=== PATIENT | female | born 1950 | race Caucasian/White ===

== ENCOUNTER 2020-09-02 20:50 | Emergency (ER) | payer OTHER ==
[2020-09-02 21:02] VITALS: BMI 30.1
--- NOTE | 2020-09-02 21:46 | PDOC ---
History of Present Illness - General Chief Complaint: Pain Stated Complaint: ABDOMINAL PAIN/EDEMA Time Seen by Provider: 09/02/20 21:17 - History of Present Illness Initial Comments: 09/02/20 22:18 70 yo female with pmh hld, htn, gastritis, hernia sx, and hysterectomy presents to ED for lower abd pain worsening for the last 3-4 days. Pt is gabonese speaking so daughter interpreted for her. According to pt has been having on and off pain for the last two months where she has generalized abdominal pain mostly on her suprapubic area. She explain she went to [facility] about a month ago for similar pain where they did a CT scan of her abdomen and it did not show any acute findings. Pt currently explains in the last few days pain was getting worse. Pt went to her [facility] four days prior Dr. Brown who put her on ciprofloxacin and metronidazole for possible GI infection. This did not help the pt pain so she decided to come in. Pt currently describes pain as sharp pain worse with any type of sudden movements. Pt also explains she has some urinary frequency going on for the past month and this morning she had some dysuria. Pt currently also has associated nausea but denies any emesis. Pt also has associated lower ext edema and abdominal distention that has been going on and off for the past two months. Pt scheduled for endoscopy and colonoscopy in September. Pt denies diarrhea, constipation, bloody stools, black stools, fevers, chills, chest pain, or SOB. PMH: HLD< HTN, Gastroparesis, Vertigo PSH: hysterectomy, right sided hernia, varicose vein surgery [place]: codeine Social: denies smoking drugs and alcohol PCP: Dr. Pepe GI: Dr. Brown Past History - Medical History Allergies/Adverse Reactions: Allergies Allergy/AdvReac Type Severity Reaction Status Date / Time codeine Allergy Verified 09/02/20 23:27 gabapentin Allergy Verified 09/02/20 23:28 Asthma: Yes COPD: No GI Disorders: Yes HTN: Yes Hypercholesterolemia: Yes - Psycho-Social/Smoking History Smoking History: Never smoked - Substance Abuse Hx (Audit-C & DAST Scrn) How often the patient has a drink containing alcohol: Never Score: In Men: 4 or > Positive; In Women: 3 or > Positive: 0 Screen Result (Pos requires Nsg. Audit-10AR): Negative Review of Systems - Review of Systems Comments:: 09/02/20 22:30 GENERAL/CONSTITUTIONAL: No fever or chills. No weakness. HEAD, EYES, EARS, NOSE AND THROAT: No change in vision. No ear pain or discharge. No sore throat. CARDIOVASCULAR: No chest pain or shortness of breath RESPIRATORY: No cough, wheezing, or hemoptysis. GASTROINTESTINAL: Nausea. No vomiting, diarrhea or constipation GENITOURINARY: Dysuria and urinary frequency MUSCULOSKELETAL: lower ext swelling SKIN: No rash NEUROLOGIC: No headache, vertigo, loss of consciousness, or change in strength/sensation. ENDOCRINE: No increased thirst. No abnormal weight change HEMATOLOGIC/LYMPHATIC: No anemia, easy bleeding, or history of blood clots. ALLERGIC/IMMUNOLOGIC: No hives or skin allergy. *Physical Exam - Vital Signs Last Vital Signs Temp Pulse Resp BP Pulse Ox 97.8 F 73 20 141/84 99 09/02/20 20:53 09/02/20 20:53 09/02/20 20:53 09/02/20 20:53 09/02/20 20:53 - Physical Exam 09/03/20 05:46 GENERAL: Awake, alert, and fully oriented, in no acute distress HEAD: No signs of trauma, normocephalic, atraumatic EYES: EOMI, sclera anicteric, conjunctiva clear ENT: Auricles normal inspection, hearing grossly normal, nares patent, oropharynx clear without exudates. Moist mucosa NECK: Normal ROM, supple, no lymphadenopathy, JVD, or masses LUNGS: No distress, speaks full sentences, clear to auscultation bilaterally HEART: Regular rate and rhythm, normal S1 and S2, no murmurs, rubs or gallops, peripheral pulses normal and equal bilaterally. ABDOMEN: normal bowel sounds. Tender to palpation in LLQ and RLQ and suprapubic area. EXTREMITIES :mild nonpitting edema on bilateral lower edema. NEUROLOGICAL: Cranial nerves II through XII grossly intact. Normal speech, normal gait, no focal sensorimotor deficits SKIN: Warm, Dry, normal turgor, no rashes or lesions noted ED Treatment Course - LABORATORY CBC & Chemistry Diagram: 09/02/20 23:18 09/02/20 23:18 Medical Decision Making - Medical Decision Making 09/02/20 22:53 70 yo f coming in with lower abd pain. ddx: uti, diverticulosis, ovarian cancer, constipation, muscle strain, IBS plan: CBC, cmp, UA. Will give tylenol for pain, pelvic ultrasound Pt already on abx. Pt plan has resolved. Labs showed no acute pathology. Will dc home with GI follow up. Discharge - Discharge Information Problems reviewed: Yes Clinical Impression/Diagnosis: Gas pain, Constipation by delayed colonic transit Condition: Improved Disposition: HOME - Follow up/Referral Referrals: Alicia Pepe MD [Primary Care Provider] - - Patient Discharge Instructions Patient Printed Discharge Instructions: Eating a Diet Rich in Fruits and Vegetables, DI for Dyspepsia Additional Instructions: You came into the emergency department for abdominal pain. Labs and ultrasound imaging did not indicate acute pathology Follow-up with your GI or primary care provider to discuss this ED visit and to further evaluate your symptoms. Your workup is not complete until you do so. Immediate medical attention is required if you develop: worsening pain, high fevers, persistent nausea, vomiting, or any new or concerning symptoms. If you think you are having an emergency, call for emergency medical services or present to the emergency department right away. - Post Discharge Activity
--- NOTE | 2020-09-02 22:05 | PDOC ---
Attending Attestation - Resident Resident Name: Dipak Sy - ED Attending Attestation I have performed the following: I have examined & evaluated the patient, The case was reviewed & discussed with the resident, I agree w/resident's findings & plan - HPI HPI: 09/02/20 23:23 Pt is concerned because she has sharp pains in her lower abd. She is gaining weight and she has distended abd. Her soc started her on abx for colitis. Pt has no dysuria-- regardless, abx would rx a UTI Pt has no fever chils or weight loss but she does have weakness. - Physicial Exam PE: 09/02/20 23:24 Normal exam. Obese abd; thick later of fat around abd Very gassy bowel sounds. - Medical Decision Making 09/02/20 23:56 All labs are normal she will get a sono and go home. 09/03/20 00:04 Pt likely only has gas and constipation and gained weight 09/03/20 01:50 Pt has a normal looking sono of her pelvis 09/03/20 04:58 Patient Name: BRYAN MANLEY THIS IS A PRELIMINARY REPORT DATE OF SERVICE: 2020-09-02 23:54:39 IMAGES: 17 EXAM: TRANSVAGINAL ULTRASOUND US HISTORY: Rule out ovarian mass. COMPARISON: None. FINDINGS: Status post hysterectomy. No appreciable adnexal masses or fluid collections. Right ovary not seen due to bowel gas. Left ovary unremarkable in sonographic appearance with preserved color Doppler flow. IMPRESSION: Status post hysterectomy. Nonvisualization of right ovary with normal sonographic appearance of the left ovary Discharge - Discharge Information Problems reviewed: Yes Clinical Impression/Diagnosis: Gas pain, Constipation by delayed colonic transit Condition: Improved Disposition: HOME - Follow up/Referral Referrals: Alicia Pepe MD [Primary Care Provider] - - Patient Discharge Instructions Patient Printed Discharge Instructions: Eating a Diet Rich in Fruits and Vegetables, DI for Dyspepsia Additional Instructions: You came into the emergency department for abdominal pain. Labs and ultrasound imaging did not indicate acute pathology Follow-up with your GI or primary care provider to discuss this ED visit and to further evaluate your symptoms. Your workup is not complete until you do so. Immediate medical attention is required if you develop: worsening pain, high fevers, persistent nausea, vomiting, or any new or concerning symptoms. If you think you are having an emergency, call for emergency medical services or present to the emergency department right away. - Post Discharge Activity
[2020-09-02] MEDS ORDERED: ACETAMINOPHEN 1000 MG/100 ML VIAL (NON FORMULARY) IVPB ONE (22:17)
[2020-09-02 23:12] LABS: PH,URINE 7.5 (5.0-8.0); URINE APPEARANCE CLEAR; URINE BILIRUBIN NEGATIVE (NEGATIVE); URINE COLOR YELLOW; URINE GLUCOSE (UA) NEGATIVE (NEGATIVE); URINE KETONE NEGATIVE (NEGATIVE); URINE LEUK ESTERASE NEGATIVE (NEGATIVE); URINE NITRITE NEGATIVE (NEGATIVE); URINE PROTEIN NEGATIVE (NEGATIVE); URINE UROBILINOGEN 0.2 mg/dL (0.2-1.0)
[2020-09-02] MEDS ORDERED: POLYETHYLENE GLYCOL 3350 119 GM BTL PO ONE (23:14)
[2020-09-02] MEDS ORDERED: LACTULOSE 20 GM/30 ML UDC (FOR ORAL USE ONLY) PO ONE (23:14)
[2020-09-02 23:32] LABS: EOS % 4.3 % (0-4.5); HEMATOCRIT 39.2 % (32.4-45.2); HEMOGLOBIN 13.3 GM/dL (10.7-15.3); LYMPH % 33.8 % (8-40); MCH 30.4 pg (25.7-33.7); MEAN CELL VOLUME 89.6 fl (80-96); MEAN PLT VOLUME 8.2 fl (7.5-11.1); MONO % 10.2 % (3.8-10.2); NEUT % 50.7 % (42.8-82.8); PLATELET COUNT 261 K/MM3 (134-434); RBC 4.37 M/mm3 (3.60-5.2); RDW 13.2 % (11.6-15.6); WHITE BLOOD COUNT 6.1 K/mm3 (4.0-10.0)
[2020-09-02 23:41] LABS: CHLORIDE 107 mmol/L (98-107); POTASSIUM 3.6 mmol/L (3.5-5.1); SODIUM 142 mmol/L (136-145)
[2020-09-02 23:43] LABS: CALCIUM 8.9 mg/dL (8.5-10.1)
[2020-09-02 23:44] VITALS: PULSE 69
[2020-09-02 23:44] LABS: ALBUMIN 3.5 g/dl (3.4-5.0); ANION GAP 5 MMOL/L (8-16); BLOOD UREA NITROGEN 10.6 mg/dL (7-18); CO2 30 mmol/L (21-32); GLUCOSE,RANDOM 83 mg/dL (74-106)
[2020-09-02 23:47] LABS: CREATININE 0.6 mg/dL (0.55-1.3); SGOT/AST 21 U/L (15-37)
[2020-09-02 23:48] LABS: BILIRUBIN,TOTAL 0.3 mg/dL (0.2-1)
[2020-09-02 23:50] LABS: ALK PHOS 95 U/L (45-117)
[2020-09-03 00:11] LABS: SGPT/ALT 13 U/L (13-61)
[2020-09-03] MEDS ORDERED: LACTULOSE 20 GM/30 ML UDC (FOR ORAL USE ONLY) ONE (00:20)
--- NOTE | 2020-09-03 02:12 | PDOC ---
*Physical Exam - Vital Signs Last Vital Signs Temp Pulse Resp BP Pulse Ox 97.4 F L 69 18 131/76 98 09/02/20 22:10 09/02/20 22:10 09/02/20 22:10 09/02/20 22:10 09/02/20 22:10 <Padmaja Durbin - Last Filed: 09/03/20 03:32> - Vital Signs Last Vital Signs Temp Pulse Resp BP Pulse Ox 97.2 F L 69 18 121/69 98 09/03/20 02:30 09/02/20 22:10 09/03/20 02:30 09/03/20 02:30 09/03/20 02:30 <Elisha Sutton - Last Filed: 09/03/20 04:46> ED Treatment Course - LABORATORY CBC & Chemistry Diagram: 09/02/20 23:18 09/02/20 23:18 - ADDITIONAL ORDERS Additional order review: Laboratory Results 09/02/20 09/02/20 23:18 23:08 Sodium 142 Potassium 3.6 Chloride 107 Carbon Dioxide 30 Anion Gap 5 L BUN 10.6 Creatinine 0.6 Est GFR (CKD-EPI)AfAm 106.28 Est GFR (CKD-EPI)NonAf 91.70 Random Glucose 83 Calcium 8.9 Total Bilirubin 0.3 AST 21 ALT 13 Alkaline Phosphatase 95 Creatine Kinase 92 Troponin I < 0.02 B-Natriuretic Peptide 109.0 Total Protein 7.0 Albumin 3.5 Urine Color Yellow Urine Appearance Clear Urine pH 7.5 Ur Specific [place] 1.004 L Urine Protein Negative Urine Glucose (UA) Negative Urine Ketones Negative Urine Blood Negative Urine Nitrite Negative Urine Bilirubin Negative Urine Urobilinogen 0.2 Ur Leukocyte Esterase Negative 09/02/20 23:18 RBC 4.37 MCV 89.6 MCHC 34.0 RDW 13.2 MPV 8.2 Neutrophils % 50.7 Lymphocytes % 33.8 Monocytes % 10.2 Eosinophils % 4.3 Basophils % 1.0 - Medications Given in the ED: ED Medications Discontinued Medications Generic Name Dose Route Start Last Admin Trade Name Freq PRN Reason Stop Dose Admin Acetaminophen 1,000 mg 09/02/20 22:17 09/02/20 23:30 Ofirmev Injection - IVPB 09/02/20 22:18 1,000 mg ONCE ONE Administration Lactulose 20 gm 09/02/20 23:14 09/03/20 01:07 Cephulac (Oral Use) PO 09/02/20 23:15 20 gm ONCE ONE Administration Polyethylene Glycol 17 gm 09/02/20 23:14 09/03/20 01:07 Miralax (For Daily Use) - PO 09/02/20 23:15 17 gm ONCE ONE Administration <Padmaja Durbin - Last Filed: 09/03/20 03:32> - LABORATORY CBC & Chemistry Diagram: 09/02/20 23:18 09/02/20 23:18 - ADDITIONAL ORDERS Additional order review: Laboratory Results 09/02/20 09/02/20 23:18 23:08 Sodium 142 Potassium 3.6 Chloride 107 Carbon Dioxide 30 Anion Gap 5 L BUN 10.6 Creatinine 0.6 Est GFR (CKD-EPI)AfAm 106.28 Est GFR (CKD-EPI)NonAf 91.70 Random Glucose 83 Calcium 8.9 Total Bilirubin 0.3 AST 21 ALT 13 Alkaline Phosphatase 95 Creatine Kinase 92 Troponin I < 0.02 B-Natriuretic Peptide 109.0 Total Protein 7.0 Albumin 3.5 Urine Color Yellow Urine Appearance Clear Urine pH 7.5 Ur Specific [place] 1.004 L Urine Protein Negative Urine Glucose (UA) Negative Urine Ketones Negative Urine Blood Negative Urine Nitrite Negative Urine Bilirubin Negative Urine Urobilinogen 0.2 Ur Leukocyte Esterase Negative 09/02/20 23:18 RBC 4.37 MCV 89.6 MCHC 34.0 RDW 13.2 MPV 8.2 Neutrophils % 50.7 Lymphocytes % 33.8 Monocytes % 10.2 Eosinophils % 4.3 Basophils % 1.0 - RADIOLOGY Radiology Studies Ordered: Category Date Time Status TRANSVAGINAL ULTRASOUND US [US] Stat Ultrasound 09/02/20 23:13 Taken - Medications Given in the ED: ED Medications Discontinued Medications Generic Name Dose Route Start Last Admin Trade Name Freq PRN Reason Stop Dose Admin Acetaminophen 1,000 mg 09/02/20 22:17 09/02/20 23:30 Ofirmev Injection - IVPB 09/02/20 22:18 1,000 mg ONCE ONE Administration Lactulose 20 gm 09/02/20 23:14 09/03/20 01:07 Cephulac (Oral Use) PO 09/02/20 23:15 20 gm ONCE ONE Administration Polyethylene Glycol 17 gm 09/02/20 23:14 09/03/20 01:07 Miralax (For Daily Use) - PO 09/02/20 23:15 17 gm ONCE ONE Administration <SuttonElisha - Last Filed: 09/03/20 04:46> Discharge - Discharge Information Problems reviewed: Yes <Padmaja Durbin - Last Filed: 09/03/20 03:32> <Elisha Sutton - Last Filed: 09/03/20 04:46> - Discharge Information Clinical Impression/Diagnosis: Gas pain, Constipation by delayed colonic transit Condition: Improved Disposition: HOME - Follow up/Referral Referrals: Alicia Pepe MD [Primary Care Provider] - - Patient Discharge Instructions Patient Printed Discharge Instructions: Eating a Diet Rich in Fruits and Vegetables, DI for Dyspepsia Additional Instructions: You came into the emergency department for abdominal pain. Labs and ultrasound imaging did not indicate acute pathology Follow-up with your GI or primary care provider to discuss this ED visit and to further evaluate your symptoms. Your workup is not complete until you do so. Immediate medical attention is required if you develop: worsening pain, high fevers, persistent nausea, vomiting, or any new or concerning symptoms. If you think you are having an emergency, call for emergency medical services or present to the emergency department right away. - Post Discharge Activity
[2020-09-03 02:42] VITALS: BP 121/69; TEMP 97.2
== END 2020-09-03 02:42 | disposition home or self-care (01) ==
LOC: JER 20:50
PROC: 3E033NZ Introduction of Analgesics, Hypnotics, Sedatives into Peripheral Vein, Percutaneous Approach (ICD-10-PCS; principal; 2020-09-02)
DX: R14.3 Flatulence (principal); K59.00 Constipation, unspecified
CPT/HCPCS: 36415; 76830-TC; 80053; 81003; 82550; 83880; 84484; 85025; 87086; 99285-25; J0131